=== PATIENT | male | born 1950 | race Caucasian/White ===

== ENCOUNTER → 2021-07-06 07:59 | Outpatient (CLI) | payer MEDICARE, OTHER, SELFPAY ==
--- NOTE | 2021-07-06 08:01 | DI.MRI.S_ITS ---
PROCEDURE: MR SHOULDER RT WO CON INDICATIONS: Persistent right shoulder pain with intermittent weakness TECHNIQUE: Noncontrast oblique coronal T2 fast spin echo with fat saturation, oblique sagittal T1 spin echo and T2 fast spin echo with fat saturation, axial T1 spin echo and T2 fast spin echo with fat saturation through the shoulder. COMPARISON: None. FINDINGS: Rotator cuff: Supraspinatus tendinopathy with low-grade bursal surface fraying. There is also low-grade partial thickness articular sided tear. Infraspinatus tendinopathy, mild. Teres minor tendon appears intact. Subscapularis tendinopathy and mild thickening. Low-grade articular surface fraying. Mild fatty infiltration of the infraspinatus and subscapularis muscles. No atrophy of the rotator cuff muscles. Bones and bursae: No bone marrow contusions or fractures. Moderate acromioclavicular joint degeneration. Acromion demonstrates conventional anatomy, without an os acromiale. Mild subacromial-subdeltoid bursitis. Capsule and soft tissues: Labrum: Mild fraying of the superior labral segment, with incidentally noted at glenoid undercutting (normal anatomic variant). Posterior labral tear with adjacent near full-thickness chondral loss, and degenerative spurring and sclerosis at the glenoid rim. Posterior subluxed appearance of the humeral head relative to the glenoid raising the possibility of microinstability. Mild degeneration of the anterior segment. Glenohumeral ligaments: Slight thickening of the inferior glenohumeral ligament suggestive of chronic sprain. The superior glenohumeral ligament appears intact. Biceps tendon: Long head of the biceps tendon intact. Rotator interval: Normal signal intensity. Coracohumeral ligament: Intact. IMPRESSION: Low-grade partial-thickness rotator cuff tear as above. Mild subacromial-subdeltoid bursitis Chronic posterior labral tear. Adjacent near full-thickness chondral loss. Posterior subluxed appearance of the humeral head relative to the glenoid which raises the possibility of microinstability. Additional degeneration of the superior and anterior labral segments. Chronic appearing sprain of the inferior glenohumeral ligament. Dictated by: Yang Bloom M.D. on 07/06/2021 at 9:41 Approved by: Yang Bloom M.D. on 07/06/2021 at 9:57
== END ==
PROVIDERS: PCP Family Medicine; Referring Provider Family Medicine; Visit Provider Family Medicine
DX: S43.491A Other sprain of right shoulder joint, initial encounter; M75.51 Bursitis of right shoulder; M19.011 Primary osteoarthritis, right shoulder; S46.011D Strain of muscle(s) and tendon(s) of the rotator cuff of right shoulder, subsequent encounter
CPT/HCPCS: 73221

== ENCOUNTER → 2021-12-11 08:24 | Outpatient (CLI) | payer MEDICARE, OTHER, SELFPAY ==
[2021-12-11 20:53] LABS: COVID19 - ORCAS (NP or Nasal) Negative (Negative)
== END ==
PROVIDERS: PCP Family Medicine; Visit Provider Family Medicine
DX: Z01.812 Encounter for preprocedural laboratory examination (principal); Z20.822 Contact with and (suspected) exposure to COVID-19
CPT/HCPCS: C9803; U0003

== ENCOUNTER → 2022-05-08 10:57 | Outpatient (CLI) | payer MEDICARE, OTHER, SELFPAY ==
[2022-05-08 20:00] LABS: Add Manual Diff / Slide Review NO; Basophils Absolute Auto 100 /uL (0-100); Basophils Percent Auto 1.1 % (0-2); Eosinophils Absolute Auto 100 /uL (0-450); Eosinophils Percent Auto 1.4 % (2-4); Hematocrit 41.8 % (41-53); Hemoglobin 13.3 g/dL (13.5-17.5); Lymphocytes Absolute Auto 1700 /uL (1100-4500); Lymphocytes Percent Auto 34.5 % (25-40); Mean Corpuscular Hemoglobin 23.9 PG (26-34); Mean Corpuscular Volume 74.9 fL (80-100); Monocytes Absolute Auto 500 /uL (0-900); Monocytes Percent Auto 9.9 % (3-14); Neutrophils Absolute Auto 2600 /uL (1500-7000); Neutrophils Percent Auto 53.1 % (50-75); Platelet Count 241 X10^3/uL (150-400); Red Blood Cell Count 5.57 X10^6/uL (4.5-5.9); Red Cell Distribution Width 14.9 % (11.6-14.8); White Blood Cell Count 4.8 X10^3/uL (4.5-11.0)
[2022-05-08 20:10] LABS: Alanine Aminotransferase 27 IU/L (<50); Albumin 4.4 g/dL (3.5-5.0); Albumin Globulin Ratio 1.8 (1.0-2.8); Alkaline Phosphatase 69 U/L (38-126); Aspartate Aminotransferase 29 IU/L (17-59); BUN Creatinine Ratio 22.1 (6-22); Bilirubin Total 0.7 mg/dL (0.2-1.3); Blood Urea Nitrogen 17 mg/dL (9-20); Calcium 9.1 mg/dL (8.4-10.2); Carbon Dioxide 27 mmol/L (22-32); Chloride 104 mmol/L (98-107); Cholesterol 171 mg/dL (140-199); Estimated Glomerular Filt Rate > 60 mL/min (>60); Globulin 2.5 g/dL (1.7-4.1); Glucose 82 mg/dL (80-110); HDL Cholesterol 53 mg/dL (40-60); HEMOLYSIS 21 (0-50); LDL Cholesterol Calculated 97 mg/dL (<100); Potassium 4.4 mmol/L (3.4-5.1); Sodium 139 mmol/L (137-145); Total Protein 6.9 g/dL (6.3-8.2); Triglycerides 103 mg/dL (35-150)
[2022-05-08 20:35] LABS: TSH w/ Reflex to FT4 3.01 uIU/mL (0.47-4.68)
== END ==
PROVIDERS: PCP Family Medicine; Visit Provider Family Medicine
DX: I48.0 Paroxysmal atrial fibrillation (principal); I25.10 Atherosclerotic heart disease of native coronary artery without angina pectoris; E03.9 Hypothyroidism, unspecified; E78.5 Hyperlipidemia, unspecified; N13.8 Other obstructive and reflux uropathy; N40.1 Benign prostatic hyperplasia with lower urinary tract symptoms
CPT/HCPCS: 80053; 80061; 84443; 85025

== ENCOUNTER → 2022-05-20 11:09 | Outpatient (CLI) | payer MEDICARE, OTHER, SELFPAY ==
[2022-05-24 18:46] LABS: Fecal Immunochemical Test Positive (Negative)
== END ==
PROVIDERS: PCP Family Medicine; Visit Provider Family Medicine
DX: D64.9 Anemia, unspecified (principal)
CPT/HCPCS: 82274

== ENCOUNTER → 2022-09-10 13:01 | Outpatient (CLI) | payer MEDICARE, OTHER, SELFPAY ==
[2022-09-10 20:05] LABS: Add Manual Diff / Slide Review NO; Basophils Absolute Auto 0 /uL (0-100); Basophils Percent Auto 0.7 % (0-2); Eosinophils Absolute Auto 100 /uL (0-450); Eosinophils Percent Auto 1.2 % (2-4); Hematocrit 41.3 % (41-53); Hemoglobin 13.1 g/dL (13.5-17.5); Lymphocytes Absolute Auto 1700 /uL (1100-4500); Lymphocytes Percent Auto 29.9 % (25-40); Mean Corpuscular HGB Conc 31.6 % (30-36); Mean Corpuscular Hemoglobin 23.3 PG (26-34); Mean Corpuscular Volume 73.8 fL (80-100); Monocytes Absolute Auto 500 /uL (0-900); Monocytes Percent Auto 8.9 % (3-14); Neutrophils Absolute Auto 3400 /uL (1500-7000); Neutrophils Percent Auto 59.3 % (50-75); Platelet Count 245 X10^3/uL (150-400); Red Cell Distribution Width 15.4 % (11.6-14.8); White Blood Cell Count 5.7 X10^3/uL (4.5-11.0)
[2022-09-10 20:12] LABS: Cholesterol 158 mg/dL (140-199); HDL Cholesterol 51 mg/dL (40-60); LDL Cholesterol Calculated 89 mg/dL (<100); Triglycerides 91 mg/dL (35-150)
== END ==
PROVIDERS: PCP Family Medicine; Visit Provider Family Medicine
DX: I25.10 Atherosclerotic heart disease of native coronary artery without angina pectoris (principal); D64.9 Anemia, unspecified; E78.5 Hyperlipidemia, unspecified
CPT/HCPCS: 80061; 85025

== ENCOUNTER → 2023-06-17 12:52 | Outpatient (CLI) | payer MEDICARE, OTHER, SELFPAY ==
[2023-06-17 19:55] LABS: Add Manual Diff / Slide Review NO; Basophils Absolute Auto 0 /uL (0-100); Basophils Percent Auto 0.6 % (0-2); Eosinophils Absolute Auto 100 /uL (0-450); Eosinophils Percent Auto 1.2 % (2-4); Hematocrit 41.9 % (41-53); Hemoglobin 13.3 g/dL (13.5-17.5); Lymphocytes Absolute Auto 2100 /uL (1100-4500); Lymphocytes Percent Auto 32.4 % (25-40); Mean Corpuscular HGB Conc 31.8 % (30-36); Mean Corpuscular Hemoglobin 23.6 PG (26-34); Mean Corpuscular Volume 74.2 fL (80-100); Monocytes Absolute Auto 600 /uL (0-900); Monocytes Percent Auto 8.6 % (3-14); Neutrophils Absolute Auto 3700 /uL (1500-7000); Neutrophils Percent Auto 57.2 % (50-75); Platelet Count 256 X10^3/uL (150-400); Red Blood Cell Count 5.65 X10^6/uL (4.5-5.9); Red Cell Distribution Width 15.4 % (11.6-14.8); White Blood Cell Count 6.5 X10^3/uL (4.5-11.0)
[2023-06-17 20:07] LABS: BUN Creatinine Ratio 18.2 (6-22); Blood Urea Nitrogen 14 mg/dL (9-20); Calcium 9.9 mg/dL (8.4-10.2); Carbon Dioxide 27 mmol/L (22-32); Chloride 102 mmol/L (98-107); Cholesterol 139 mg/dL (140-199); Estimated Glomerular Filt Rate > 60 mL/min (>60); Glucose 85 mg/dL (80-110); HDL Cholesterol 55 mg/dL (40-60); HEMOLYSIS < 15 (0-50); LDL Cholesterol Calculated 66 mg/dL (<100); Potassium 4.1 mmol/L (3.4-5.1); Sodium 139 mmol/L (137-145); Triglycerides 91 mg/dL (35-150)
[2023-06-17 20:30] LABS: Prostate Specific Antigen Scrn 1.87 ng/mL (0.1-4.0)
[2023-06-17 20:32] LABS: TSH w/ Reflex to FT4 1.89 uIU/mL (0.47-4.68)
[2023-06-19 16:39] LABS: Hep C Virus Ab w/Reflex Quant NEGATIVE s/c (NEGATIVE)
[2023-06-20 06:36] LABS: Cholesterol, Total 131 mg/dL (100-199); HDL-Cholesterol 58 mg/dL (>39); HDL-Particle (Total) 39.8 umol/L (>=30.5); LDL Particle 884 nmol/L (<1000); LDL Size 20.6 nm (>20.5); LDL-Cholsterol 57 mg/dL (0-99); LP-IR Score 39 (<=45); Small LDL- Particle 490 nmol/L (<=527); Triglycerides 81 mg/dL (0-149)
== END ==
PROVIDERS: PCP Family Medicine; Visit Provider Family Medicine
DX: I48.0 Paroxysmal atrial fibrillation (principal); I25.10 Atherosclerotic heart disease of native coronary artery without angina pectoris; Z12.5 Encounter for screening for malignant neoplasm of prostate; E78.5 Hyperlipidemia, unspecified; D64.9 Anemia, unspecified; E03.9 Hypothyroidism, unspecified; R19.5 Other fecal abnormalities; Z11.59 Encounter for screening for other viral diseases
CPT/HCPCS: 80048; 80061; 83704; 84443; 85025; 86803; G0103

== ENCOUNTER → 2023-07-22 09:37 | Outpatient (CLI) | payer MEDICARE, OTHER, SELFPAY ==
--- NOTE | 2023-07-22 22:00 | DI.NM.S_ITS ---
DATE OF SERVICE: 07/22/2023 PROCEDURE: Exercise perfusion study. INDICATIONS: History of CAD, paroxysmal AFib, hypertension. RADIOPHARMACEUTICAL: 25 millicurie technetium-99m Myoview IV was injected at stress and 12.9 millicurie technetium-99m Myoview IV was injected at rest. CARDIAC STRESS: The patient underwent exercise perfusion study under the supervision of an attending staff. The patient walked on Christopher protocol for 9 minutes and 5 seconds, achieved maximum heart rate of 144, which was 99% of target heart rate. 10.1 METS of workload. REBA - 45%. Resting blood pressure 122/76 mmHg. Peak blood pressure 162/82 mmHg. Baseline rhythm was sinus with some nonspecific ST-T changes in inferior leads. During stress, no convincing ischemic changes or significant arrhythmias seen. No anginal symptoms. The patient felt fatigue. No complex arrhythmias. RAW DATA: There is increased subdiaphragmatic activity. GATED STUDY: Stress LV ejection fraction 72% and resting LV ejection fraction 66% without any significant wall motion abnormalities. Resting end-diastolic volume 110 mL. TID ratio 0.97, which is within normal limits. Lung/heart ratio 0.24, which is within normal limits. MYOCARDIAL PERFUSION SCAN: Stress supine and resting supine images revealed small size, mild to moderately decreased perfusion of inferior wall and inferior apex, which got significantly improved during stress prone images suggestive of diaphragmatic tissue attenuation artifact. No convincing ischemia or infarction pattern seen. CONCLUSION: I will call this study likely a normal myocardial perfusion study with evidence of diaphragmatic tissue attenuation artifact, which got significantly improved during stress prone images. Excellent exercise tolerance. The patient walked on Christopher protocol for 9 minutes and 5 seconds. Functional aerobic impairment -45%. Normal blood pressure response. Achieved 10.1 metabolic equivalents of workload. No convincing ischemic electrocardiographic changes. No complex arrhythmias or anginal symptoms. Preserved left ventricular function. Overall, low-risk myocardial perfusion scan. Ángel Flores - DIANE/yi/JANINA doc#: [id number]/job#: [id number] dd: 07/22/2023 16:46:00 dt: 07/22/2023 21:48:00 DICTATING MD/COPIES TO: Amaury Ghosh MD COPIES MNE: DEMETRA;
== END ==
PROVIDERS: PCP Family Medicine; Referring Provider Family Medicine; Visit Provider Family Medicine
DX: I25.10 Atherosclerotic heart disease of native coronary artery without angina pectoris (principal); I48.0 Paroxysmal atrial fibrillation; E78.5 Hyperlipidemia, unspecified; I10 Essential (primary) hypertension
CPT/HCPCS: 78452; 93017; A9502

== ENCOUNTER → 2024-01-16 08:32 | Outpatient (CLI) | payer MEDICARE, OTHER, SELFPAY ==
[2024-01-16 19:44] LABS: Add Manual Diff / Slide Review NO; Basophils Absolute Auto 100 /uL (0-100); Eosinophils Absolute Auto 200 /uL (0-450); Eosinophils Percent Auto 2.2 % (2-4); Hematocrit 39.4 % (41-53); Hemoglobin 12.5 g/dL (13.5-17.5); Lymphocytes Absolute Auto 1000 /uL (1100-4500); Lymphocytes Percent Auto 14.7 % (25-40); Mean Corpuscular HGB Conc 31.7 % (30-36); Mean Corpuscular Hemoglobin 23.7 PG (26-34); Mean Corpuscular Volume 74.9 fL (80-100); Monocytes Absolute Auto 700 /uL (0-900); Monocytes Percent Auto 9.8 % (3-14); Neutrophils Absolute Auto 5000 /uL (1500-7000); Neutrophils Percent Auto 72.3 % (50-75); Platelet Count 229 X10^3/uL (150-400); Red Blood Cell Count 5.26 X10^6/uL (4.5-5.9); Red Cell Distribution Width 15.4 % (11.6-14.8)
[2024-01-16 19:50] LABS: Alanine Aminotransferase 23 IU/L (<50); Albumin 4.1 g/dL (3.5-5.0); Albumin Globulin Ratio 1.6 (1.0-2.8); Alkaline Phosphatase 79 U/L (38-126); Aspartate Aminotransferase 32 IU/L (17-59); BUN Creatinine Ratio 17.4 (6-22); Bilirubin Total 1.1 mg/dL (0.2-1.3); Blood Urea Nitrogen 15 mg/dL (9-20); Calcium 9.4 mg/dL (8.4-10.2); Carbon Dioxide 28 mmol/L (22-32); Chloride 105 mmol/L (98-107); Cholesterol 100 mg/dL (140-199); Estimated Glomerular Filt Rate > 60 mL/min (>60); Globulin 2.6 g/dL (1.7-4.1); Glucose 86 mg/dL (80-110); HDL Cholesterol 44 mg/dL (40-60); HEMOLYSIS 20 (0-50); LDL Cholesterol Calculated 40 mg/dL (<100); Potassium 3.7 mmol/L (3.4-5.1); Sodium 139 mmol/L (137-145); Total Protein 6.7 g/dL (6.3-8.2); Triglycerides 79 mg/dL (35-150)
[2024-01-16 20:19] LABS: Prostate Specific Antigen Scrn 1.62 ng/mL (0.1-4.0)
[2024-01-16 20:21] LABS: TSH w/ Reflex to FT4 2.66 uIU/mL (0.47-4.68)
== END ==
PROVIDERS: PCP Family Medicine; Visit Provider Family Medicine
DX: Z12.5 Encounter for screening for malignant neoplasm of prostate (principal); I10 Essential (primary) hypertension; N40.0 Benign prostatic hyperplasia without lower urinary tract symptoms; D56.3 Thalassemia minor; E78.5 Hyperlipidemia, unspecified; I48.0 Paroxysmal atrial fibrillation; I25.10 Atherosclerotic heart disease of native coronary artery without angina pectoris
CPT/HCPCS: 80053; 80061; 84443; 85025; G0103

== ENCOUNTER → 2024-01-21 09:03 | Outpatient (CLI) | payer MEDICARE, OTHER, SELFPAY ==
[2024-01-22 20:40] LABS: Fecal Immunochemical Test Negative (Negative)
== END ==
PROVIDERS: PCP Family Medicine; Visit Provider Family Medicine
DX: D64.89 Other specified anemias (principal)
CPT/HCPCS: 82274

== ENCOUNTER → 2024-02-02 13:03 | Outpatient (CLI) | payer MEDICARE, OTHER, SELFPAY ==
[2024-02-02 21:55] LABS: Vitamin B12 267 pg/mL (239-931)
== END ==
PROVIDERS: PCP Family Medicine; Visit Provider Family Medicine
DX: D64.89 Other specified anemias (principal)
CPT/HCPCS: 82607

== ENCOUNTER → 2024-08-06 08:36 | Outpatient (CLI) | payer MEDICARE, OTHER, SELFPAY ==
--- NOTE | 2024-08-06 08:39 | DI.CT.S_ITS ---
PROCEDURE: CT ABDOMEN PELVIS W CON INDICATIONS: abdominal pain TECHNIQUE: After the administration of intravenous contrast, axial sections acquired from the lung bases to the pubic symphysis. Coronal and sagittal reformats were performed. For radiation dose reduction, the following was used: automated exposure control, adjustment of mA and/or kV according to patient size. COMPARISON: None. FINDINGS: Image quality: Diagnostic Lower chest: unremarkable lung bases. Normal heart size. Liver: Possible hepatic steatosis. Possible perfusion anomaly versus hemangioma near the falciform ligament. Liver dome cyst. Gallbladder and biliary system: Unremarkable, nondistended Pancreas: No ductal dilation Spleen: Nonenlarged Adrenals: No discrete nodules Kidneys: No solid mass or hydronephrosis. Subcentimeter lesions are too small to characterize, usually cysts Vessels and lymph nodes: The main portal vein is patent. No abdominal aortic aneurysm or pathologic lymph nodes by size criteria. 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 Bowel and peritoneum: No evidence of small bowel obstruction or pathologic ascites. Fecal loading is [id number]. There is focal wall thickening of the ascending colon. Normal diameter appendix. Body wall: Tiny fat containing umbilical hernia. Pelvis: Bladder is under distended and not well assessed. Heterogeneous prostate, with small cystic regions. There is heterogeneous enhancement and calcifications. These are also not well assessed on CT. Consider PSA correlation if indicated. Bones: No acute or suspicious osseous findings. Degenerative changes are present. Small sclerotic lesions may represent bone islands. IMPRESSION: More focal mild wall thickening is seen in the ascending colon, not well assessed on CT without prior prep. Consider correlation with age-appropriate colonoscopy results. Otherwise, no bowel obstruction, significant bowel inflammation, or other acute abdominal pelvic abnormality. Focal ectasia of the celiac trunk measuring up to 1.4 cm. Focal hypervascular region near the falciform ligament of the liver, usually a perfusion anomaly versus hemangioma. This is favored benign if the patient does not have a known malignancy history, but could be confirmed on MRI otherwise. Other findings as above. Dictated by: Rajiv Shine M.D. on 08/06/2024 at 15:12 Approved by: Rajiv Shine M.D. on 08/06/2024 at 15:17
[2024-08-06 09:16] LABS: Add Manual Diff / Slide Review NO; Basophils Absolute Auto 0 /uL (0-100); Basophils Percent Auto 0.6 % (0-2); Eosinophils Absolute Auto 100 /uL (0-450); Eosinophils Percent Auto 1.4 % (2-4); Hematocrit 40.3 % (41-53); Hemoglobin 12.9 g/dL (13.5-17.5); Lymphocytes Absolute Auto 1900 /uL (1100-4500); Lymphocytes Percent Auto 30.4 % (25-40); Mean Corpuscular Hemoglobin 23.6 PG (26-34); Monocytes Absolute Auto 500 /uL (0-900); Monocytes Percent Auto 8.5 % (3-14); Neutrophils Absolute Auto 3700 /uL (1500-7000); Neutrophils Percent Auto 59.1 % (50-75); Platelet Count 254 X10^3/uL (150-400); Red Blood Cell Count 5.45 X10^6/uL (4.5-5.9); White Blood Cell Count 6.2 X10^3/uL (4.5-11.0)
[2024-08-06 09:23] LABS: Estimated Glomerular Filt Rate > 60 mL/min (>60)
[2024-08-06 09:24] LABS: Reticulocyte Count, Percent 0.7 % (0.9-2.6)
[2024-08-06 09:35] LABS: HEMOLYSIS < 15 (0-50); Iron 113 ug/dL (49-181)
[2024-08-06 09:39] LABS: Alanine Aminotransferase 19 IU/L (<50); Albumin 4.5 g/dL (3.5-5.0); Albumin Globulin Ratio 2.1 (1.0-2.8); Alkaline Phosphatase 64 U/L (38-126); Aspartate Aminotransferase 19 IU/L (17-59); BUN Creatinine Ratio 15.7 (6-22); Bilirubin Total 0.9 mg/dL (0.2-1.3); Blood Urea Nitrogen 14 mg/dL (9-20); Calcium 9.9 mg/dL (8.4-10.2); Carbon Dioxide 30 mmol/L (22-32); Chloride 102 mmol/L (98-107); Cholesterol 134 mg/dL (140-199); Estimated Glomerular Filt Rate > 60 mL/min (>60); Globulin 2.1 g/dL (1.7-4.1); Glucose 93 mg/dL (80-110); HDL Cholesterol 54 mg/dL (40-60); HEMOLYSIS < 15 (0-50); LDL Cholesterol Calculated 66 mg/dL (<100); Potassium 4.7 mmol/L (3.4-5.1); Sodium 137 mmol/L (137-145); Total Protein 6.6 g/dL (6.3-8.2); Triglycerides 72 mg/dL (35-150)
[2024-08-06 09:46] LABS: Percent Iron Saturation 35 % (20-50); Total Iron Binding Capacity 325 ug/dL (261-462); Transferrin 254 mg/dL (206-381)
[2024-08-06 10:30] LABS: Vitamin B12 856 pg/mL (239-931)
== END ==
PROVIDERS: Radiology Diagnostic Radiology; PCP Family Medicine; Referring Provider Family Medicine; Visit Provider Family Medicine
DX: E53.8 Deficiency of other specified B group vitamins (principal); E78.5 Hyperlipidemia, unspecified; R10.9 Unspecified abdominal pain; I48.0 Paroxysmal atrial fibrillation; I25.10 Atherosclerotic heart disease of native coronary artery without angina pectoris; N40.1 Benign prostatic hyperplasia with lower urinary tract symptoms; N13.8 Other obstructive and reflux uropathy; R19.5 Other fecal abnormalities; D64.89 Other specified anemias; I10 Essential (primary) hypertension; K76.89 Other specified diseases of liver
CPT/HCPCS: 36415; 74177; 80053; 80061; 82565; 82607; 83540; 83550; 85025; 85045; Q9967

== ENCOUNTER → 2024-08-10 09:00 | Outpatient (CLI) | payer MEDICARE, OTHER, SELFPAY ==
[2024-08-12 12:10] LABS: Fecal Immunochemical Test Negative (Negative)
== END ==
PROVIDERS: PCP Family Medicine; Visit Provider Family Medicine
DX: E53.8 Deficiency of other specified B group vitamins (principal); E78.5 Hyperlipidemia, unspecified; I48.0 Paroxysmal atrial fibrillation; I25.10 Atherosclerotic heart disease of native coronary artery without angina pectoris; N40.1 Benign prostatic hyperplasia with lower urinary tract symptoms; N13.8 Other obstructive and reflux uropathy; I10 Essential (primary) hypertension; D64.89 Other specified anemias; R19.5 Other fecal abnormalities; R10.10 Upper abdominal pain, unspecified
CPT/HCPCS: 82274

== ENCOUNTER → 2025-09-20 09:29 | Outpatient (CLI) | payer MEDICARE, OTHER, SELFPAY ==
[2025-09-20 18:37] LABS: Add Manual Diff / Slide Review NO; Hematocrit 42.1 % (41-53); Hemoglobin 13.4 g/dL (13.5-17.5); Lymphocytes Absolute Auto 1500 /uL (1100-4500); Mean Corpuscular HGB Conc 31.9 % (30-36); Mean Corpuscular Hemoglobin 23.7 PG (26-34); Mean Corpuscular Volume 74.3 fL (80-100); Platelet Count 258 X10^3/uL (150-400)
[2025-09-20 18:52] LABS: Alanine Aminotransferase 26 IU/L (<50); Albumin 4.5 g/dL (3.5-5.0); Albumin Globulin Ratio 1.9 (1.0-2.8); Alkaline Phosphatase 76 U/L (38-126); Blood Urea Nitrogen 12 mg/dL (9-20); Calcium 9.7 mg/dL (8.4-10.2); Carbon Dioxide 28 mmol/L (22-32); Chloride 104 mmol/L (98-107); Cholesterol 115 mg/dL (140-199); Estimated Glomerular Filt Rate > 60 mL/min (>60); Globulin 2.4 g/dL (1.7-4.1); Glucose 93 mg/dL (70-99); HDL Cholesterol 53 mg/dL (40-60); HEMOLYSIS 26 (0-50); Potassium 4.4 mmol/L (3.4-5.1); Sodium 139 mmol/L (137-145); Total Protein 6.9 g/dL (6.3-8.2); Triglycerides 77 mg/dL (35-150)
== END ==
PROVIDERS: PCP Family Medicine; Referring Provider Family Medicine; Visit Provider Family Medicine
DX: Z12.5 Encounter for screening for malignant neoplasm of prostate (principal); D64.89 Other specified anemias; I25.10 Atherosclerotic heart disease of native coronary artery without angina pectoris; E78.5 Hyperlipidemia, unspecified; I10 Essential (primary) hypertension
CPT/HCPCS: 80053; 80061; 85025; G0103